=== PATIENT | female | born 1995 | race Caucasian/White ===

== ENCOUNTER 2018-12-30 18:38 | Outpatient (CLI) | payer OTHER ==
[2018-12-30] MEDS ORDERED: PRENATABS RX T1 EACH PO (19:25)
== END 2018-12-31 07:54 | disposition home or self-care (01) ==
LOC: OBS/DEL 18:38 → LDR 21:54 → OBS/DEL 12-31 07:52
DX: O26.893 Other specified pregnancy related conditions, third trimester (principal); R42 Dizziness and giddiness; Z34.03 Encounter for supervision of normal first pregnancy, third trimester

== ENCOUNTER 2019-04-09 17:26 | Outpatient (CLI) | payer OTHER ==
[~2019-04-09] VITALS: Ht 152.4 cm; Wt 90.3 kg
[~2019-04-09 17:26] MED LIST: PRENATABS RX T1 EACH PO
== END 2019-04-09 20:29 | disposition home or self-care (01) ==
LOC: OBS/DEL 17:26
DX: O42.92 Full-term premature rupture of membranes, unspecified as to length of time between rupture and onset of labor (principal); O35.8XX0 Maternal care for other (suspected) fetal abnormality and damage, not applicable or unspecified

== ENCOUNTER 2019-04-15 06:20 | Inpatient (IN) | payer OTHER ==
[~2019-04-15] VITALS: Ht 165.1 cm; Wt 3.2 kg
== END 2019-04-18 12:31 | disposition home or self-care (01) | DRG 788 ==
LOC: OB/GYN 06:20 → LDR 06:20 → OB/GYN 04-16 01:32
PROVIDERS: ADMIT Specialist
PROC: 3E0P7VZ Introduction of Hormone into Female Reproductive, Via Natural or Artificial Opening (ICD-10-PCS; 2019-04-15)
PROC: 3E033VJ Introduction of Other Hormone into Peripheral Vein, Percutaneous Approach (ICD-10-PCS; 2019-04-15)
PROC: 4A1HXCZ Monitoring of Products of Conception, Cardiac Rate, External Approach (ICD-10-PCS; 2019-04-15)
PROC: 10D00Z1 Extraction of Products of Conception, Low, Open Approach (ICD-10-PCS; principal; 2019-04-15 20:00)
DX: O82 Encounter for cesarean delivery without indication (principal); O61.0 Failed medical induction of labor; Z3A.40 40 weeks gestation of pregnancy; Z37.0 Single live birth